=== PATIENT | male | born 1990 | race Caucasian/White ===

== ENCOUNTER 2023-07-18 11:06 | Inpatient (IN) | payer MEDICAID, OTHER ==
[~2023-07-18] VITALS: Ht 170.2 cm; Wt 70.0 kg
[2023-07-18] MEDS: NALOXONE HCL 1MG/ML 2ML SYRINGE IV ONE ×8 (10:58→16:35)
[2023-07-18] MEDS ORDERED: NALOXONE HCL 1MG/ML 2ML SYRINGE ONE (11:08)
[2023-07-18] MEDS: NALOXONE HCL 1MG/ML 2ML SYRINGE ONE ×2 (11:15→12:48)
[2023-07-18 12:02] LABS: Hemoglobin 14.9 g/dL (13.5-17.5); Mean Corpuscular Hemoglobin 30.3 pg (28.0-32.0); Mean Corpuscular Hgb Conc. 33.2 g/dL (32.0-36.0); Mean Corpuscular Volume 91.4 fL (80.0-100.0); Red Blood Cells 4.92 10^6/uL (4.5-5.90); Red Cell Distribution Width 13.1 % (11.8-14.3)
[2023-07-18] MEDS: SODIUM CHLORIDE 0.9% 1,000 ML IV ONE ×2 (12:02→12:05)
[2023-07-18 12:19] LABS: Alanine Aminotransferase 513 U/L (7-40); Albumin 3.9 g/dL (3.2-4.8); Alkaline Phosphatase 105 U/L (46-116); Anion Gap 10 (5-15); Aspartate Aminotransferase 567 U/L (13-40); BUN/Creatinine Ratio 10.7 (10.0-20.0); Blood Alcohol < 3.0 mg/dL (<10); Blood Urea Nitrogen 18 mg/dL (9-23); Carbon Dioxide 21 mmol/L (20-30); Chloride 108 mmol/L (98-107); Creatine Kinase IFCC 629 U/L (46-171); Glucose 154 mg/dL (74-106); Magnesium 2.7 mg/dL (1.6-2.6); Potassium 5.5 mmol/L (3.5-5.1); Sodium 139 mmol/L (136-145); Total Protein 6.4 g/dL (5.7-8.2)
[2023-07-18 12:21] LABS: Lactic Acid w/Reflex 4.4 mmol/L (0.4-2.0)
[2023-07-18 12:28] LABS: Urine Bacteria None Seen /hpf (None Seen)
[2023-07-18 12:28] LABS: Basophils % (manual) 0 (0.0-2.0); Blast Cells 0; Eosinophils % (manual) 0 (0-7); Metamyelocytes % 0; Myelocytes % 0; Promyelocytes % 0; Reactive Lymphocytes 0
[2023-07-18 12:46] LABS: Urine Blood 2+ /uL (Negative); Urine Clarity Clear (Clear); Urine Color Yellow (Yellow); Urine Hyaline Cast FEW /lpf (0 - 2); Urine Mucus FEW (None Seen); Urine Protein, UAD TRACE (Negative); Urine Specific Gravity 1.015 (1.001-1.035); Urine Urobilinogen 2 mg/dL (Negative); Urine WBC 4 /hpf (0 - 3); Urine pH 6.5 (5.0-9.0)
[2023-07-18 12:51] LABS: Amphetamine Screen, Urine Pos (NEGATIVE); Barbiturate Scree,Urine Neg (NEGATIVE); Benzodiazephine Screen, Urine Neg (NEGATIVE); Cannabinoid Screen, Urine Pos (NEGATIVE); Cocaine Screen, Urine Neg (NEGATIVE); Opiate Scree,Urine Neg (NEGATIVE); Phencyclidine Screen, Urine Neg (NEGATIVE)
[2023-07-18] MEDS: PIPERACILLIN-TAZOB 3.375GM 100 ML IV ONE ×2 (12:51→19:44)
[2023-07-18] MEDS: IPRATROPIUM BROM 0.5 MG/2.5ML INH SOL NEB ONE (13:00)
[2023-07-18 13:03] LABS: Band Neutrophils % (manual) 14; Lymphocytes % (manual) 11 (10.0-50.0); Monocytes % (manual) 4 (0-12); Platelet Estimate Adequate
[2023-07-18 13:04] VITALS: RESP 10; O2SAT 100
[2023-07-18] MEDS: IPRATROPIUM BROM 0.5 MG/2.5ML INH SOL ONE (13:21)
[2023-07-18] MEDS: ALBUTEROL SULF 2.5 MG/0.5ML(0.5%) NEB SOLN ONE (13:22)
[2023-07-18] MEDS: FUROSEMIDE 20 MG/2 ML VIAL IV ONE (14:09)
[2023-07-18 14:27] LABS: Base Excess -8.7 mmol/L (-2.0-2.0)
[2023-07-18 15:22] LABS: Alanine Aminotransferase 558 U/L (7-40); Alkaline Phosphatase 95 U/L (46-116); Anion Gap 8 (5-15); Aspartate Aminotransferase 624 U/L (13-40); BUN/Creatinine Ratio 14.2 (10.0-20.0); Blood Urea Nitrogen 20 mg/dL (9-23); Calcium 7.8 mg/dL (8.5-10.1); Carbon Dioxide 23 mmol/L (20-30); Chloride 109 mmol/L (98-107); Glucose 137 mg/dL (74-106); Potassium 4.9 mmol/L (3.5-5.1); Sodium 140 mmol/L (136-145)
[2023-07-18 15:23] LABS: Albumin 3.9 g/dL (3.2-4.8); Bilirubin, Total 0.8 mg/dL (0.2-1.0); Total Protein 6.4 g/dL (5.7-8.2)
[2023-07-18] MEDS: LACTULOSE 20Gm/30ML SOLN PO ONE (16:31)
[2023-07-18] MEDS: LACTULOSE 10g/15ml SOLN 473ML PR ONE (16:31)
[2023-07-18] MEDS ORDERED: PIPERACILLIN-TAZOB 3.375GM 100 ML IV ONE (17:00)
[2023-07-18] MEDS ORDERED: SODIUM CHLORIDE 0.9% 1,000 ML IV SCH (17:15)
[2023-07-18] MEDS: NALOXONE HCL 2 MG in D5W 5% 495 ML IV ONE (17:50)
[2023-07-18 17:52] LABS: Basophils # (auto) 0.1 10 ^3/uL (0-0.2); Basophils % (auto) 0.8 % (0.0-2.0); Eosinophils # (auto) 0 10 ^3/uL (0-0.8); Hematocrit 50.6 % (41.0-53.0); Hemoglobin 16.6 g/dL (13.5-17.5); Lymphocytes # (auto) 0.2 10 ^3/uL (0.4-5.4); Lymphocytes % (auto) 1.4 % (10.0-50.0); Mean Corpuscular Hemoglobin 29.9 pg (28.0-32.0); Mean Corpuscular Hgb Conc. 32.8 g/dL (32.0-36.0); Mean Corpuscular Volume 91.1 fL (80.0-100.0); Monocytes # (auto) 0.9 10 ^3/uL (0-1.3); Monocytes % (auto) 6.1 % (0.0-12.0); Neutrophils # (auto) 14.2 10 ^3/uL (1.6-8.6); Neutrophils % (auto) 91.7 % (37.0-80.0); Nucleated Red Blood Cells % 0.1 %; Red Blood Cells 5.56 10^6/uL (4.5-5.90); Red Cell Distribution Width 13.2 % (11.8-14.3); White Blood Cell 15.4 10^3/uL (4.4-10.8)
[2023-07-18 19:30] VITALS: PULSE 72; RESP 12; O2SAT 96
[2023-07-18] MEDS: ALBUTEROL SULF 2.5 MG/0.5ML(0.5%) NEB SOLN NEB ONE (19:30)
[2023-07-18] MEDS: SODIUM CHLORIDE 0.9% 1,000 ML IV SCH (19:44)
[2023-07-18 21:11] LABS: Acetaminophen < 2.0 UG/ML (10.0-20.0)
[2023-07-18 21:19] LABS: Salicylate < 3.0 mg/dL (2.8-20.0)
[2023-07-18 21:40] LABS: Anion Gap 15 (5-15); Carbon Dioxide 21 mmol/L (20-30); Chloride 105 mmol/L (98-107); Sodium 141 mmol/L (136-145)
[2023-07-18 21:41] LABS: Calcium 8.8 mg/dL (8.5-10.1)
[2023-07-18 21:45] LABS: Glucose 161 mg/dL (74-106)
[2023-07-18 21:46] LABS: BUN/Creatinine Ratio 13.4 (10.0-20.0); Blood Urea Nitrogen 19 mg/dL (9-23); LDL Cholesterol 65 mg/dL (< 100); Triglycerides 52 mg/dL (< 150)
[2023-07-18 21:48] LABS: Cholesterol 134 mg/dL (< 200); HDL Cholesterol 56 mg/dL (40-59)
[2023-07-19] MEDS: NALOXONE HCL 1MG/ML 2ML SYRINGE IV ONE (00:21)
[2023-07-19] MEDS: NALOXONE HCL 1MG/ML 2ML SYRINGE ONE (00:30)
[2023-07-19] MEDS: NALOXONE HCL 2 MG in D5W 5% 495 ML IV SCH (02:01)
[2023-07-19 06:31] LABS: Basophils # (auto) 0 10 ^3/uL (0-0.2); Basophils % (auto) 0.1 % (0.0-2.0); Eosinophils # (auto) 0 10 ^3/uL (0-0.8); Hematocrit 44.1 % (41.0-53.0); Hemoglobin 14.9 g/dL (13.5-17.5); Lymphocytes # (auto) 0.5 10 ^3/uL (0.4-5.4); Lymphocytes % (auto) 2.7 % (10.0-50.0); Mean Corpuscular Hemoglobin 30.6 pg (28.0-32.0); Mean Corpuscular Hgb Conc. 33.8 g/dL (32.0-36.0); Mean Corpuscular Volume 90.5 fL (80.0-100.0); Monocytes # (auto) 1.1 10 ^3/uL (0-1.3); Monocytes % (auto) 6.5 % (0.0-12.0); Neutrophils # (auto) 15.6 10 ^3/uL (1.6-8.6); Neutrophils % (auto) 90.7 % (37.0-80.0); Nucleated Red Blood Cells % 0.1 %; Red Blood Cells 4.87 10^6/uL (4.5-5.90); Red Cell Distribution Width 13.3 % (11.8-14.3); White Blood Cell 17.2 10^3/uL (4.4-10.8)
[2023-07-19 06:40] LABS: Anion Gap 8 (5-15); Carbon Dioxide 27 mmol/L (20-30); Chloride 104 mmol/L (98-107); Potassium 3.7 mmol/L (3.5-5.1); Sodium 139 mmol/L (136-145)
[2023-07-19 06:42] LABS: Calcium 8.5 mg/dL (8.5-10.1)
[2023-07-19 06:46] LABS: BUN/Creatinine Ratio 19.2 (10.0-20.0); Blood Urea Nitrogen 19 mg/dL (9-23); Glucose 116 mg/dL (74-106)
[2023-07-19 07:23] LABS: INR 1.12 (0.9-1.15); Partial Thromboplastin Time 25.9 SEC (24.5-34.5); Prothrombin Time 11.8 sec (9.3-11.8)
[2023-07-19 07:24] LABS: Folate (Folic Acid) 13.89 ng/mL (>5.38)
[2023-07-19] MEDS: LACTULOSE 20Gm/30ML SOLN NG ONE (08:43)
[2023-07-19] MEDS: CYANOCOBALAMIN (B-12) 1000 MCG/1 ML VIAL IM ONE (08:44)
[2023-07-19] MEDS ORDERED: ENOXAPARIN SOD 40 MG/0.4 ML SYRINGE SC SCH (10:00)
[2023-07-19 11:06] LABS: Base Excess 1.4 mmol/L (-2.0-2.0)
[2023-07-19] MEDS: PANTOPRAZOLE 40 MG/10 ML VIAL INJ IV SCH (11:11)
[2023-07-19] MEDS: ENOXAPARIN SOD 40 MG/0.4 ML SYRINGE SC SCH (11:12)
[2023-07-19] MEDS: SODIUM CHLORIDE 0.9% 1,000 ML IV SCH (11:12)
[2023-07-19 11:28] LABS: Creatinine, Urine 162.82 mg/dL (30.0-125.0)
[2023-07-19] MEDS: LACTULOSE 20Gm/30ML SOLN NG SCH (12:10)
[2023-07-19 12:25] LABS: Phosphorus 3.7 mg/dL (2.4-5.1)
[2023-07-19 13:24] LABS: Free T3 3.08 pg/mL (2.3-4.2); Free T4 (Free Thyroxine) 1.13 ng/dL (0.89-1.76)
[2023-07-19] MEDS: PIPERACILLIN-TAZOB 3.375GM 100 ML IV SCH (14:25)
[2023-07-19 19:30] VITALS: PULSE 98; RESP 12; O2SAT 97
[2023-07-20] VITALS (9 sets, daily range): BP systolic 98–123; BP diastolic 52–82; PULSE 71–90; RESP 9–19; TEMP 97.8–98.6; O2SAT 93–100
[2023-07-20] MEDS: NALOXONE HCL 1MG/ML 2ML SYRINGE IV PRN (00:39)
[2023-07-20 07:07] LABS: RPR Non Reactive (Non Reactive)
[2023-07-20 08:19] LABS: Basophils # (auto) 0 10 ^3/uL (0-0.2); Basophils % (auto) 0.2 % (0.0-2.0); Eosinophils # (auto) 0 10 ^3/uL (0-0.8); Eosinophils % (auto) 0.3 % (0.0-7.0); Hematocrit 45.1 % (41.0-53.0); Hemoglobin 15.2 g/dL (13.5-17.5); Lymphocytes # (auto) 1.1 10 ^3/uL (0.4-5.4); Lymphocytes % (auto) 10.1 % (10.0-50.0); Mean Corpuscular Hemoglobin 30.3 pg (28.0-32.0); Mean Corpuscular Hgb Conc. 33.6 g/dL (32.0-36.0); Mean Corpuscular Volume 90.2 fL (80.0-100.0); Monocytes # (auto) 0.9 10 ^3/uL (0-1.3); Monocytes % (auto) 8.6 % (0.0-12.0); Neutrophils # (auto) 8.9 10 ^3/uL (1.6-8.6); Neutrophils % (auto) 80.8 % (37.0-80.0); Red Blood Cells 4.99 10^6/uL (4.5-5.90)
[2023-07-20] MEDS: PIPERACILLIN-TAZOB 3.375GM 100 ML IV SCH (08:32)
[2023-07-20 08:33] LABS: Alanine Aminotransferase 382 U/L (7-40); Albumin 3.6 g/dL (3.2-4.8); Alkaline Phosphatase 86 U/L (46-116); Anion Gap 6 (5-15); Aspartate Aminotransferase 461 U/L (13-40); BUN/Creatinine Ratio 10.1 (10.0-20.0); Carbon Dioxide 26 mmol/L (20-30); Chloride 107 mmol/L (98-107); Glucose 97 mg/dL (74-106); Potassium 3.7 mmol/L (3.5-5.1); Sodium 139 mmol/L (136-145)
[2023-07-20 08:34] LABS: Bilirubin, Total 0.8 mg/dL (0.2-1.0); Total Protein 6.2 g/dL (5.7-8.2)
[2023-07-20 08:37] LABS: Blood Urea Nitrogen 8 mg/dL (9-23)
[2023-07-20 08:42] LABS: CRP High Sensitivity 3.32 mg/dL (<1.0)
[2023-07-20 09:10] LABS: Hepatitis B Surface Antigen Negative (Negative)
[2023-07-20 09:31] LABS: Hepatitis B Core IgM Negative
[2023-07-20 09:32] LABS: Hepatitis A Ab IgM Negative
[2023-07-20 10:06] LABS: Hepatitis C Antibody Reactive (Negative)
[2023-07-20] MEDS: LACTULOSE 20Gm/30ML SOLN PO SCH (11:48)
[2023-07-21 01:00] VITALS: BP 116/58; PULSE 77; RESP 18; TEMP 98; O2SAT 100
[2023-07-21 05:00] VITALS: BP 116/81; PULSE 65; RESP 18; TEMP 97.8; O2SAT 94
[2023-07-21 06:56] LABS: Alanine Aminotransferase 269 U/L (7-40); Alkaline Phosphatase 82 U/L (46-116); Anion Gap 7 (5-15); Aspartate Aminotransferase 294 U/L (13-40); Carbon Dioxide 24 mmol/L (20-30); Chloride 109 mmol/L (98-107); Glucose 123 mg/dL (74-106); Potassium 3.5 mmol/L (3.5-5.1); Sodium 140 mmol/L (136-145)
[2023-07-21 06:57] LABS: Albumin 3.6 g/dL (3.2-4.8); BUN/Creatinine Ratio 10.8 (10.0-20.0); Blood Urea Nitrogen 8 mg/dL (9-23); Magnesium 1.9 mg/dL (1.6-2.6)
[2023-07-21 06:59] LABS: Bilirubin, Total 0.8 mg/dL (0.2-1.0); Total Protein 6.1 g/dL (5.7-8.2)
[2023-07-21 07:00] LABS: Basophils # (auto) 0 10 ^3/uL (0-0.2); Basophils % (auto) 0.5 % (0.0-2.0); Eosinophils # (auto) 0.2 10 ^3/uL (0-0.8); Hematocrit 46.2 % (41.0-53.0); Hemoglobin 15.5 g/dL (13.5-17.5); Lymphocytes # (auto) 1.4 10 ^3/uL (0.4-5.4); Lymphocytes % (auto) 16.5 % (10.0-50.0); Mean Corpuscular Hemoglobin 31.1 pg (28.0-32.0); Mean Corpuscular Hgb Conc. 33.5 g/dL (32.0-36.0); Mean Corpuscular Volume 92.7 fL (80.0-100.0); Monocytes # (auto) 0.8 10 ^3/uL (0-1.3); Monocytes % (auto) 9.6 % (0.0-12.0); Neutrophils # (auto) 6.2 10 ^3/uL (1.6-8.6); Neutrophils % (auto) 71.4 % (37.0-80.0); Nucleated Red Blood Cells % 0.1 %; Red Blood Cells 4.98 10^6/uL (4.5-5.90); Red Cell Distribution Width 13.1 % (11.8-14.3); White Blood Cell 8.7 10^3/uL (4.4-10.8)
[2023-07-21 07:09] LABS: Creatine Kinase IFCC 3951 U/L (46-171)
[2023-07-21 08:00] VITALS: PULSE 58; RESP 19; O2SAT 96
[2023-07-21 09:00] VITALS: BP 122/79; PULSE 58; RESP 19; TEMP 98.3; O2SAT 96
[2023-07-21] MEDS ORDERED: AMOX500T86 PO (10:34)
[2023-07-21 11:46] VITALS: BP 122/79; PULSE 58; RESP 19; TEMP 98.3; O2SAT 96
== END 2023-07-21 13:30 | disposition home or self-care (01) | DRG 812 ==
LOC: EDBD 11:06 → ER 11:06 → TELE 17:06 → ER 17:07 → TELE-WESTW 07-19 23:20 → WEST WING 07-20 17:49
PROVIDERS: ADMIT Internal Medicine; ATTEND Internal Medicine Pulmonary Disease
DX: T43.621A Poisoning by amphetamines, accidental (unintentional), initial encounter (principal); J96.01 Acute respiratory failure with hypoxia; N17.0 Acute kidney failure with tubular necrosis; J69.0 Pneumonitis due to inhalation of food and vomit; G92.8 Other toxic encephalopathy; I21.A1 Myocardial infarction type 2; E72.20 Disorder of urea cycle metabolism, unspecified; M62.82 Rhabdomyolysis; T40.411A Poisoning by fentanyl or fentanyl analogs, accidental (unintentional), initial encounter; R74.01 Elevation of levels of liver transaminase levels; F15.129 Other stimulant abuse with intoxication, unspecified; F11.129 Opioid abuse with intoxication, unspecified; Y92.89 Other specified places as the place of occurrence of the external cause
CPT/HCPCS: 36415; 36600; 70450; 71045; 71250; 72125; 74176; 80048; 80053; 80061; 80074; 80307; 80320; 80329; 81001; 82140; 82306; 82550; 82570; 82607; 82746; 82805; 82977; 83036; 83605; 83615; 83735; 83874; 83880; 84100; 84300; 84439; 84443; 84481; 84484; 84550; 85007; 85025; 85027; 85045; 85610; 85730; 86141; 86592; 87040; 87081; 87086; 93005; 93306; 94640; 99291; 99292; C9113; G0378; J2543